=== PATIENT | male | born 1970 | race Caucasian/White ===

== ENCOUNTER → 2018-10-19 | Outpatient (CLI) | payer BC ==
--- NOTE | 2018-10-19 15:31 | P.SLEEP ---
History of Present Illness H&P Date: 10/19/18 Chief Complaint: Loud snoring, possible sleep apnea This is a pleasant 47-year-old male patient who works locally at [employer], referred to me by his primary care physician due to concern of sleep apnea. The patient has loud snoring. Over the past 10 years he has gained around 50 pounds and has become more somnolent and sleepy. His current [place] score is at 15. He can fall easily after dinner. He has been told to quit breathing by his . He wakes up tired in the morning. He goes to bed around midnight wakes up 6:30 AM. Takes a few minutes to fall asleep. No sleep paralysis. No hallucinations. No cataplexy. He wakes a few times in the middle of the night to use the bathroom. He sleeps on his side and he prefers to sleep on his side rather than his back. No nocturnal seizures. No nocturnal heartburn or chest pain or arthritis or restlessness in his lower extremities. No sleep walking. No sleep talking. No palpitations. No heartburn. No anxiety. No panic. No previous personal or family history for obstructive sleep apnea. No other major comorbidities. No history of any motor vehicle accident because of feeling drowsy or sleepy. His weight came has been noted and the patient was started on Adipex by his primary care physician for weight loss. His comorbidities include hyperlipidemia. Review of Systems Constitutional: Reports daytime sleepiness, Reports fatigue, Reports weight gain Eyes: denies as per HPI, denies blurred vision, denies bulging eye, denies decreased vision, denies diplopia, denies discharge, denies dry eye, denies irritation, denies itching, denies pain, denies photophobia, denies loss of peripheral vision, denies loss of vision, denies tunnel vision/blind spots Ears: deny: decreased hearing, ear discharge, earache, tinnitus Ears, nose, mouth and throat: Reports as per HPI (Loud snoring), Denies headache, Denies sore throat Breasts: absent: as per HPI, gynecomastia Cardiovascular: Denies chest pain, Denies shortness of breath Respiratory: Reports snoring Gastrointestinal: Reports as per HPI Genitourinary: Reports as per HPI Musculoskeletal: Reports as per HPI Musculoskeletal: absent: ankle pain, ankle stiffness, ankle swelling, as per HPI, elbow pain, elbow stiffness, elbow swelling, foot pain, foot stiffness, foot swelling, hand pain, hand stiffness, hand swelling, hip pain, hip stiffness, hip swelling, knee pain, knee stiffness, knee swelling, shoulder pain, shoulder stiffness, shoulder swelling, wrist pain, wrist stiffness, wrist swelling Integumentary: Reports as per HPI Neurological: Reports as per HPI Psychiatric: Reports as per HPI Endocrine: Reports as per HPI, Reports fatigue Hematologic/Lymphatic: Reports as per HPI Allergic/Immunologic: Reports allergic rhinitis Past Medical History Additional Past Medical History / Comment(s): Hyperlipidemia, obesity Additional Past Surgical History / Comment(s): Urologic surgery, involving the urethra opening the urine passages Smoking Status: Never smoker Past Alcohol Use History: Occasional Past Drug Use History: None Reported - Past Family History Father Family Medical History: Diabetes Mellitus, Hyperlipidemia Medications and Allergies Home Medications and Allergies Comment(s): Adipex 37.5 mg 1 tablet a day Lipitor 10 mg by mouth daily Physical Exam Vitals: The patient's blood pressure is 136/95, pulse is 100, respirations 16, temperature 98.5, saturation 7% on room air, weight is 263, height is 5 foot and 7 inches, BMI is 41.1, neck size is 18-1/2 inches The patient appeared well nourished and normally developed. Vital signs as documented. Head exam is unremarkable. No scleral icterus or corneal arcus noted. Neck is without jugular venous distension, thyromegaly, or carotid bruits. The patient has a Mallampati class IV. Carotid upstrokes are brisk bilaterally. Lungs are clear to auscultation and percussion. Cardiac exam reveals the PMI to be normally sized and situated. Rhythm is regular. First and second heart sounds normal. No murmurs, rubs or gallops. Abdominal exam reveals normal bowel sounds, no masses, no organomegaly and no aortic enlargement. Extremities are nonedematous and both femoral and pedal pulses are normal.Examination of the skin revealed no evidence of significant rashes, suspicious appearing nevi or other concerning lesions. Neurologically is awake and alert and there is no focal neurological deficits. Assessment and Plan Plan: 1 chronic hypersomnia with loud snoring and witnessed apneas, and the high likel ihood for obstructive sleep apnea. The patient's current [place] score is at 15. 2 morbid obesity with significant interval weight gain over the past 5 years. Current BMI is 41.1. The patient is using Adipex for weight loss 3 hyperlipidemia 4 chronic fatigue Plan There is a high likelihood that the patient is obstructive sleep apnea. The patient was explained that. The patient was advised to lose weight. He is already sleeping on his side. He is implementing good sleep hygiene measures. Avoid alcohol drinking related nighttime. We'll proceed with a home sleep study knowing that the patient has a high likelihood for an underlying obstructive sleep apnea disorder. Based on the results, we'll make further recommendations regarding treatment options. The patient is agreeable to the testing and we'll proceed accordingly. We'll continue to follow. Sleep Note - Sleep Note Sleep Note: Temperature: Pulse Rate: Respiratory Rate: Blood Pressure: SpO2: Height: Weight: BMI: Neck Circumference:
== END | disposition home or self-care (01) ==
LOC: SLEEP 14:44
PROVIDERS: ATTEND Internal Medicine Critical Care Medicine
DX: G47.10 Hypersomnia, unspecified (principal); E78.5 Hyperlipidemia, unspecified; R53.83 Other fatigue; Z79.891 Long term (current) use of opiate analgesic; E66.01 Morbid (severe) obesity due to excess calories; Z68.41 Body mass index [BMI] 40.0-44.9, adult
CPT/HCPCS: 99211

== ENCOUNTER → 2019-03-22 | Outpatient (CLI) | payer BC ==
--- NOTE | 2019-03-22 20:31 | PN ---
PROGRESS NOTE 48-year-old male patient coming in for a compliancy check regarding obstructive sleep apnea. The patient presents with symptoms typical of ARYA. The patient was found to have an AHI of 51. He was placed on a CPAP pressure of 14. On today's evaluation, the patient is looking good. He is very happy with his treatment. He is waking up much more refreshed and alert during the day. He has seen significant amount of improvement in his level of alertness. Snoring is completely gone. On his compliance data, the patient has been averaging around 6 hours of CPAP use per night. His CPAP is at a pressure of 14. His leak is at 14 L/minute. His AHI is down to 0.8. Since his diagnosis, the patient has gained around 12 pounds. The patient is currently up to 259. REVIEW OF SYSTEMS: Fourteen-point review of system was done. Positive findings are mentioned above in history of present illness. PHYSICAL EXAMINATION: BP is 156/90, pulse 82, respirations 16, temperature is 98.4. Weight 259, saturation 97% on room air. GENERAL APPEARANCE: Calm, comfortable. Head is atraumatic, normocephalic. NECK: Supple. There is no JVD. No goiter. No neck mass. LUNGS: Clear to auscultation. HEART: Heart sounds are regular rate and rhythm. Normal S1, S2. No murmurs. ABDOMEN: Soft, nontender. No organomegaly. EXTREMITIES: No edema. No cyanosis or clubbing. NEUROLOGIC: He is awake, alert, oriented. No focal neurological deficits. IMPRESSION: 1. Symptomatic obstructive sleep apnea. Severe AHI of 51, currently on CPAP pressure of 14 with excellent clinical response and compliance. 2. Obesity, current weight is 259. 3. Hypersomnia, improved. PLAN: 1. Continue CPAP therapy at a pressure of 14. 2. AirFit P10 nasal pillows to be continued. 3. Encourage weight loss. 4. Compliance data was checked, numbers looked good. 5. The patient will see me back in a year's time in followup. 6. No need for any adjustments for the time being. MMODL / IJN: [id number] /
== END | disposition home or self-care (01) ==
LOC: SLEEP 16:30
PROVIDERS: ATTEND Internal Medicine Critical Care Medicine
DX: G47.33 Obstructive sleep apnea (adult) (pediatric) (principal); G47.10 Hypersomnia, unspecified; E66.9 Obesity, unspecified; Z99.89 Dependence on other enabling machines and devices

== ENCOUNTER 2019-08-24 18:41 | Observation (INO) | payer BC ==
[2019-08-24] MEDS ORDERED: NITROGLYCERIN OINT 1 INCH/GM PACKET TOPICAL STA (19:07)
[2019-08-24] MEDS ORDERED: ASPIRIN 81 MG PO STA (19:07)
--- NOTE | 2019-08-24 19:13 | ED ---
General Adult HPI - General Chief complaint: Chest Pain Stated complaint: Chest pain Time Seen by Provider: 08/24/19 18:45 Source: patient, RN notes reviewed, old records reviewed Mode of arrival: wheelchair Limitations: no limitations - History of Present Illness Initial comments: This is a 48-year-old male who presents emergency Department with a past medical history significant for high cholesterol. Patient states he has been having intermittent chest pain over the last 2 weeks. 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 Patient states usually lasts about a half an hour but he has to sit down and rest and when he does it eventually subsides per patient states the pain radiates into his arm and he also comes lightheaded and on occasion nauseated and diaphoretic. Patient states it happened earlier today and so he decided come to the emergency department to be evaluated. Patient denies any chest pain currently. Patient denies any recent fever chills or cough. Patient denies any palpitations. Patient denies any abdominal pain. Patient denies any swelling to the legs or calf tenderness. - Related Data Home Medications Medication Instructions Recorded Confirmed Aspirin EC [Ecotrin Low Dose] 81 mg PO DAILY 08/24/19 08/24/19 Allergies Allergy/AdvReac Type Severity Reaction Status Date / Time No Known Allergies Allergy Verified 08/24/19 19:30 Review of Systems ROS Statement: Those systems with pertinent positive or pertinent negative responses have been documented in the HPI. ROS Other: All systems not noted in ROS Statement are negative. Past Medical History Additional Past Medical History / Comment(s): Hyperlipidemia, obesity History of Any Multi-Drug Resistant Organisms: None Reported Additional Past Surgical History / Comment(s): Urologic surgery, involving the urethra opening the urine passages Past Psychological History: No Psychological Hx Reported Smoking Status: Never smoker Past Alcohol Use History: None Reported, Occasional Past Drug Use History: None Reported - Past Family History Father Family Medical History: Diabetes Mellitus, Hyperlipidemia General Exam - General Exam Comments Initial Comments: GENERAL: Patient is well-developed and well-nourished. Patient is nontoxic and well- hydrated and is in mild distress. ENT: Neck is soft and supple. No significant lymphadenopathy is noted. Oropharynx is clear. Moist mucous membranes. Neck has full range of motion without eliciting any pain. EYES: The sclera were anicteric and conjunctiva were pink and moist. Extraocular movements were intact and pupils were equal round and reactive to light. Eyelids were unremarkable. PULMONARY: Unlabored respirations. Good breath sounds bilaterally. No audible rales rhonchi or wheezing was noted. CARDIOVASCULAR: There is a regular rate and rhythm without any murmurs gallops or rubs. ABDOMEN: Soft and nontender with normal bowel sounds. SKIN: Skin is clear with no lesions or rashes and otherwise unremarkable. NEUROLOGIC: Patient is alert and oriented x3. Cranial nerves II through XII are grossly intact. Motor and sensory are also intact. Normal speech, volume and content. Symmetrical smile. MUSCULOSKELETAL: Normal extremities with adequate strength and full range of motion. LYMPHATICS: No significant lymphadenopathy is noted PSYCHIATRIC: Normal psychiatric evaluation. Limitations: no limitations Course Vital Signs 08/24/19 08/24/19 18:43 19:15 Temperature 98.6 F Pulse Rate 99 88 Respiratory 18 20 Rate Blood Pressure 173/91 176/106 O2 Sat by Pulse 99 98 Oximetry Medical Decision Making - Medical Decision Making EKG shows normal sinus rhythm at 86 bpm VT interval 254 QRS is 92 QT interval 370 QTC is 452. Patient's EKG shows no ST segment elevation or depression. Chest x-ray shows no acute abnormality. I spoke with Dr. Mcdonald agreed to admit the patient admitted the patient wrote admitting orders. I started the patient on heparin I continue to heparin has been Nitropaste on the floor. I wrote admitting orders I consult cardiology. - Lab Data Result diagrams: 08/24/19 19:00 08/24/19 19:00 Lab Results 08/24/19 08/24/19 08/24/19 Range/Units 19:00 19:00 19:00 WBC 9.2 (3.8-10.6) k/uL RBC 4.79 (4.30-5.90) m/uL Hgb 14.4 (13.0-17.5) gm/dL Hct 41.0 (39.0-53.0) % MCV 85.5 (80.0-100.0) fL MCH 30.1 (25.0-35.0) pg MCHC 35.2 (31.0-37.0) g/dL RDW 12.8 (11.5-15.5) % Plt Count 267 (150-450) k/uL Neutrophils % 57 % Lymphocytes % 33 % Monocytes % 6 % Eosinophils % 2 % Basophils % 0 % Neutrophils # 5.3 (1.3-7.7) k/uL Lymphocytes # 3.1 (1.0-4.8) k/uL Monocytes # 0.5 (0-1.0) k/uL Eosinophils # 0.2 (0-0.7) k/uL Basophils # 0.0 (0-0.2) k/uL PT 9.6 (9.0-12.0) sec INR 0.9 (<1.2) APTT 23.3 (22.0-30.0) sec Sodium 138 (137-145) mmol/L Potassium 4.0 (3.5-5.1) mmol/L Chloride 104 (98-107) mmol/L Carbon Dioxide 25 (22-30) mmol/L Anion Gap 9 mmol/L BUN 15 (9-20) mg/dL Creatinine 0.70 (0.66-1.25) mg/dL Est GFR (CKD-EPI)AfAm >90 (>60 ml/min/1.73 sqM) Est GFR (CKD-EPI)NonAf >90 (>60 ml/min/1.73 sqM) Glucose 120 H (74-99) mg/dL Calcium 9.2 (8.4-10.2) mg/dL Magnesium 2.0 (1.6-2.3) mg/dL Total Bilirubin 0.3 (0.2-1.3) mg/dL AST 35 (17-59) U/L ALT 49 (4-49) U/L Alkaline Phosphatase 57 (38-126) U/L Troponin I (0.000-0.034) ng/mL Total Protein 7.2 (6.3-8.2) g/dL Albumin 4.4 (3.5-5.0) g/dL 08/24/19 Range/Units 19:00 WBC (3.8-10.6) k/uL RBC (4.30-5.90) m/uL Hgb (13.0-17.5) gm/dL Hct (39.0-53.0) % MCV (80.0-100.0) fL MCH (25.0-35.0) pg MCHC (31.0-37.0) g/dL RDW (11.5-15.5) % Plt Count (150-450) k/uL Neutrophils % % Lymphocytes % % Monocytes % % Eosinophils % % Basophils % % Neutrophils # (1.3-7.7) k/uL Lymphocytes # (1.0-4.8) k/uL Monocytes # (0-1.0) k/uL Eosinophils # (0-0.7) k/uL Basophils # (0-0.2) k/uL PT (9.0-12.0) sec INR (<1.2) APTT (22.0-30.0) sec Sodium (137-145) mmol/L Potassium (3.5-5.1) mmol/L Chloride (98-107) mmol/L Carbon Dioxide (22-30) mmol/L Anion Gap mmol/L BUN (9-20) mg/dL Creatinine (0.66-1.25) mg/dL Est GFR (CKD-EPI)AfAm (>60 ml/min/1.73 sqM) Est GFR (CKD-EPI)NonAf (>60 ml/min/1.73 sqM) Glucose (74-99) mg/dL Calcium (8.4-10.2) mg/dL Magnesium (1.6-2.3) mg/dL Total Bilirubin (0.2-1.3) mg/dL AST (17-59) U/L ALT (4-49) U/L Alkaline Phosphatase (38-126) U/L Troponin I <0.012 (0.000-0.034) ng/mL Total Protein (6.3-8.2) g/dL Albumin (3.5-5.0) g/dL Critical Care Time Critical Care Time: Yes Total Critical Care Time: 35 Disposition Clinical Impression: Unstable angina pectoris Disposition: ADMITTED IP TO THIS HOSP Referrals: Blake Zuñiga MD [Primary Care Provider] - 1-2 days Time of Disposition: 19:54
[2019-08-24 19:27] LABS: ALT 49 U/L (4-49); AST 35 U/L (17-59); African American GFR (CKD) >90 (>60 ml/min/1.73 sqM); Albumin 4.4 g/dL (3.5-5.0); Alkaline Phosphatase 57 U/L (38-126); Anion Gap 9 mmol/L; Blood Urea Nitrogen 15 mg/dL (9-20); Calcium 9.2 mg/dL (8.4-10.2); Carbon Dioxide 25 mmol/L (22-30); Chloride 104 mmol/L (98-107); Glucose 120 mg/dL (74-99); INR 0.9 (<1.2); Non-African American GFR(CKD) >90 (>60 ml/min/1.73 sqM); Partial Thromboplastin Time 23.3 sec (22.0-30.0); Prothrombin Time 9.6 sec (9.0-12.0); Sodium 138 mmol/L (137-145); Total Bilirubin 0.3 mg/dL (0.2-1.3); Total Protein 7.2 g/dL (6.3-8.2)
--- NOTE | 2019-08-24 19:29 | XR ---
EXAMINATION TYPE: XR chest 2V DATE OF EXAM: 08/24/2019 COMPARISON: NONE HISTORY: Chest pain TECHNIQUE: 2 views FINDINGS: Heart and mediastinum are normal. Lungs are clear. Diaphragm is normal. Bony thorax appears normal. IMPRESSION: Normal chest.
[2019-08-24 19:37] LABS: Basophils % (A) 0 %; Eosinophils # (A) 0.2 k/uL (0-0.7); Eosinophils % (A) 2 %; HGB 14.4 gm/dL (13.0-17.5); Lymphocytes # (A) 3.1 k/uL (1.0-4.8); Lymphocytes % (A) 33 %; MCH 30.1 pg (25.0-35.0); MCHC 35.2 g/dL (31.0-37.0); MCV 85.5 fL (80.0-100.0); Mean Platelet Volume 8.2; Monocytes # (A) 0.5 k/uL (0-1.0); Monocytes % (A) 6 %; Neutrophils # (A) 5.3 k/uL (1.3-7.7); Neutrophils % (A) 57 %; Platelet Count 267 k/uL (150-450); RBC 4.79 m/uL (4.30-5.90); RDW 12.8 % (11.5-15.5); WBC 9.2 k/uL (3.8-10.6)
[2019-08-24] MEDS ORDERED: NITROGLYCERIN SL TABS 0.4 MG TAB SUBLINGUAL PRN (19:55)
[2019-08-24] MEDS ORDERED: hydrALAZINE HCL 20 MG/ML 1 ML VIAL IVP STA (19:56)
[2019-08-25] MEDS: NITROGLYCERIN OINT 1 INCH/GM PACKET TOPICAL SCH ×3 (01:02→13:49)
[2019-08-25 04:16] LABS: Cholesterol 212 mg/dL (<200); HDL Cholesterol 34 mg/dL (40-60); LDL Cholesterol,Calculated 106 mg/dL (0-99); Triglycerides 361 mg/dL (<150)
[2019-08-25 08:16] VITALS: TEMP 98
--- NOTE | 2019-08-25 08:26 | P.CRDCN ---
History of Present Illness Consult date: 08/25/19 Chief complaint: Chest pain History of present illness: This is a very pleasant 48-year-old gentleman with a past medical history significant for dyslipidemia presented to the emergency department complaining of chest discomfort. The patient was in his usual state of health until about a few weeks ago when he started experiencing intermittent episodes of chest discomfort. The discomfort he describes is a dull/sharp, in the mid of the chest, without any radiations to the arms or neck or shoulders, and without any associated symptoms of shortness of breath, dizziness, heart racing, or syncope. The patient clearly stated that the chest discomfort is mostly with exertion once he is at work and moving around and better with resting. Everything comes it lasts for about 30 minutes and then it resolved once he is resting. The patient does have history of dyslipidemia but he stopped taking his medications. He does not smoke and does not drink alcohol. No significant family history of premature coronary artery disease. The EKG showed sinus rhythm without ischemic ST or T-wave abnormalities. The chest x-ray did not show any acute abnormalities. The patient was seen recently by his primary care physician where a stress test and echocardiogram recommended and scheduled for next week. I had a long discussion with the patient regarding the next step and I advised the patient to undergo coronary angiogram for definitive diagnosis giving the nature of his chest discomfort which is clearly anginal where the chest pain is worse with exertion and better with resting. The patient would like to think about it at this point. Meanwhile I am going to start the patient on metoprolol at 12.5 mg by mouth twice a day. Continue aspirin and continue heparin. We'll also obtain an echocardiogram was Doppler. Past Medical History Past Medical History: Hyperlipidemia Additional Past Medical History / Comment(s): Hyperlipidemia, obesity History of Any Multi-Drug Resistant Organisms: None Reported Additional Past Surgical History / Comment(s): Urologic surgery, involving the urethra opening the urine passages Past Anesthesia/Blood Transfusion Reactions: No Reported Reaction Past Psychological History: No Psychological Hx Reported Smoking Status: Never smoker Past Alcohol Use History: None Reported, Occasional Past Drug Use History: None Reported - Past Family History Father Family Medical History: Diabetes Mellitus, Hyperlipidemia Medications and Allergies Home Medications Medication Instructions Recorded Confirmed Type Aspirin EC [Ecotrin Low Dose] 81 mg PO DAILY 08/24/19 08/24/19 History Allergies Allergy/AdvReac Type Severity Reaction Status Date / Time No Known Allergies Allergy Verified 08/24/19 19:30 Physical Exam Vitals: Vital Signs Temp Pulse Pulse Resp BP BP Pulse Ox 08/25/19 08:00 98 F 91 149/89 96 08/25/19 04:00 97.5 F L 76 16 133/72 99 08/25/19 00:05 98.3 F 87 16 142/82 98 08/24/19 23:25 97 16 130/79 95 08/24/19 23:00 103 H 18 123/81 95 08/24/19 22:30 105 H 18 130/84 96 08/24/19 22:00 113 H 18 129/79 96 08/24/19 21:30 110 H 18 138/80 96 08/24/19 20:30 106 H 20 155/96 98 08/24/19 20:00 92 20 156/101 98 08/24/19 19:30 89 20 180/112 98 08/24/19 19:15 88 20 176/106 98 08/24/19 18:43 98.6 F 99 18 173/91 99 Intake and Output 08/24/19 08/25/19 08/25/19 22:59 06:59 14:59 Other: # Voids 1 Weight 120.202 kg - Constitutional General appearance: no acute distress - Respiratory Respiratory: bilateral: CTA - Cardiovascular Rhythm: regular Heart sounds: normal: S1, S2 Results 08/24/19 19:00 08/24/19 19:00 Cardiac Enzymes 08/24/19 08/24/19 08/24/19 Range/Units 19:00 19:00 21:56 AST 35 (17-59) U/L Troponin I <0.012 <0.012 (0.000-0.034) ng/mL 08/25/19 Range/Units 00:34 AST (17-59) U/L Troponin I <0.012 (0.000-0.034) ng/mL Coagulation 08/24/19 Range/Units 19:00 PT 9.6 (9.0-12.0) sec APTT 23.3 (22.0-30.0) sec Lipids 08/24/19 Range/Units 19:00 Triglycerides 361 H (<150) mg/dL Cholesterol 212 H (<200) mg/dL HDL Cholesterol 34 L (40-60) mg/dL CBC 08/24/19 Range/Units 19:00 WBC 9.2 (3.8-10.6) k/uL RBC 4.79 (4.30-5.90) m/uL Hgb 14.4 (13.0-17.5) gm/dL Hct 41.0 (39.0-53.0) % Plt Count 267 (150-450) k/uL Comprehensive Metabolic Panel 08/24/19 Range/Units 19:00 Sodium 138 (137-145) mmol/L Potassium 4.0 (3.5-5.1) mmol/L Chloride 104 (98-107) mmol/L Carbon Dioxide 25 (22-30) mmol/L BUN 15 (9-20) mg/dL Creatinine 0.70 (0.66-1.25) mg/dL Glucose 120 H (74-99) mg/dL Calcium 9.2 (8.4-10.2) mg/dL AST 35 (17-59) U/L ALT 49 (4-49) U/L Alkaline Phosphatase 57 (38-126) U/L Total Protein 7.2 (6.3-8.2) g/dL Albumin 4.4 (3.5-5.0) g/dL Current Medications Generic Name Dose Route Start Last Admin Trade Name Freq PRN Reason Stop Dose Admin Aspirin 325 mg 08/25/19 09:00 Aspirin PO DAILY BERT Metoprolol Tartrate 12.5 mg 08/25/19 09:00 Lopressor PO BID BERT Nitroglycerin 0.4 mg 08/24/19 19:55 Nitrostat SUBLINGUAL Q5M PRN Chest Pain Nitroglycerin 1 inch 08/25/19 00:00 08/25/19 04:25 Nitro-Bid Oint TOPICAL Not Given Q6HR BERT Intake and Output 08/24/19 08/25/19 08/25/19 22:59 06:59 14:59 Other: # Voids 1 Weight 120.202 kg 08/24/19 19:00 08/24/19 19:00 Assessment and Plan Assessment: Assessment Chest discomfort with exertion concerning for angina Dyslipidemia Mild obesity Plan Acute coronary event was ruled out I advised the patient to undergo a coronary angiogram Continue aspirin and heparin Start metoprolol Obtain an echocardiogram was Doppler Follow-up with the patient
[2019-08-25] MEDS ORDERED: METOPROLOL TARTRATE 12.5 MG TAB PO SCH (09:00)
[2019-08-25] MEDS ORDERED: ASPIRIN 325 MG TAB PO SCH (09:00)
[2019-08-25] MEDS ORDERED: ALPRAZolam 0.5 MG TAB PO PRN (09:38)
[2019-08-25] MEDS ORDERED: ALPRAZolam 0.25 MG TAB PO PRN (09:38)
[2019-08-25] MEDS ORDERED: ATORVASTATIN 80 MG TAB PO STA (09:38)
[2019-08-25] MEDS ORDERED: SODIUM CHLORIDE 0.9% 1,000 ML in EMPTY BAG 1 BAG IV ONE (09:38)
[2019-08-25] MEDS ORDERED: SODIUM CHLORIDE 0.9% 1,000 ML IV ONE (12:13)
[2019-08-25] MEDS ORDERED: LIDOCAINE 1% INJ 10MG/ML (20 ML MDV) ONE (12:14)
[2019-08-25] MEDS ORDERED: VERAPAMIL 2.5 MG/ML 2 ML AMP ONE (12:14)
[2019-08-25] MEDS ORDERED: LIDOCAINE 1% INJ 10MG/ML (20 ML MDV) SQ ONE ×2 (12:27→12:28)
[2019-08-25] MEDS ORDERED: MIDAZOLAM 2 MG/2 ML VIAL IVP ONE (12:28)
[2019-08-25] MEDS: VERAPAMIL SYRINGE (5 MG/10 ML) INTRAARTER ONE ×2 (12:28→12:35)
[2019-08-25] MEDS ORDERED: HEPARIN SODIUM 1,000 UN/ML (10ML VL) IV ONE (12:29)
[2019-08-25] MEDS ORDERED: IOPAMIDOL-370 100ML BTL INJ ONE (12:35)
[2019-08-25] MEDS ORDERED: RX INFO: IV CONTRAST WAS GIVEN 1 EACH MISC MISCELLANE PRN (12:42)
[2019-08-25] MEDS ORDERED: SODIUM CHLORIDE 0.9% 1,000 ML IV SCH (12:45)
--- NOTE | 2019-08-25 12:53 | ECHOF ---
Referral Reason:CP MEASUREMENTS -------- HEIGHT: 172.7 cm WEIGHT: 120.2 kg BP: 149/89 RVIDd: 3.5 cm (< 3.3) IVSd: 1.5 cm (0.6 - 1.1) LVIDd: 4.5 cm (3.9 - 5.3) LVPWd: 1.5 cm (0.6 - 1.1) IVSs: 1.9 cm LVIDs: 3.2 cm LVPWs: 1.9 cm LA Diam: 3.7 cm (2.7 - 3.8) Ao Diam: 3.0 cm (2.0 - 3.7) AV Cusp: 1.7 cm (1.5 - 2.6) MV EXCURSION: 10.325 mm (> 18.000) MV EF SLOPE: 30 mm/s (70 - 150) EPSS: 1.3 cm MV E Mario: 1.06 m/s MV DecT: 195 ms MV A Mario: 0.94 m/s MV E/A Ratio: 1.13 FINDINGS -------- Sinus rhythm. This was a technically adequate study. The left ventricular size is normal. There is moderate concentric left ventricular hypertrophy. O verall left ventricular systolic function is low-normal with, an EF between 50 - 55 %. The right ventricle is mildly enlarged. The left atrial size is normal. The right atrium is normal in size. Interatrial and interventricular septum intact. The aortic valve is trileaflet and appears structurally normal. The mitral valve is normal. Trace tricuspid regurgitation present. The pulmonic valve was not well visualized. The aortic root size is normal. IVC Not well visulized. There is no pericardial effusion. CONCLUSIONS -------- 1. Sinus rhythm. 2. This was a technically adequate study. 3. The left ventricular size is normal. 4. There is moderate concentric left ventricular hypertrophy. 5. Overall left ventricular systolic function is low-normal with, an EF between 50 - 55 %. 6. The right ventricle is mildly enlarged. 7. The left atrial size is normal. 8. The right atrium is normal in size. 9. Interatrial and interventricular septum intact. 10. The aortic valve is trileaflet and appears structurally normal. 11. The mitral valve is normal. 12. Trace tricuspid regurgitation present. 13. The pulmonic valve was not well visualized. 14. The aortic root size is normal. 15. IVC Not well visulized. 16. There is no pericardial effusion. FOLDER TIER: Nicole Burk RDCS
[2019-08-25 12:57] VITALS: RESP 14
[2019-08-25 16:21] VITALS: BP 124/70; PULSE 70
--- NOTE | 2019-08-25 16:26 | CC ---
CARDIAC CATHETERIZATION REPORT DATE OF SERVICE: 08/25/2019 PERFORMING PHYSICIAN: Albert Celeste M.D. PROCEDURE PERFORMED: 1. Selective right and left coronary angiogram. 2. Left heart catheterization. INDICATION: This is a 48-year-old gentleman with history of dyslipidemia as well as obesity who was admitted to the observational unit with chest discomfort concerning for angina. Because of that, a heart catheterization was advised. APPROACH: Right radial artery. COMPLICATIONS: None. LEVEL OF SEDATION: Moderate, with sedation length of 12 minutes. PROCEDURE DESCRIPTION: After obtaining informed consent, the patient was brought to the cardiac distillery laborer. The right radial artery was cannulated using micropuncture technique. The micropuncture wire passed easily. Then I placed a 6-Georgian sheath. I gave the patient 2 mg of verapamil IA and 10,000 units of heparin IV. Selective right and left coronary angiogram was performed using JR4 and JL3.5 catheters. Left heart catheterization was performed using the JR4 catheter, which crossed the aortic valve. Then I did pullback across the valve after the catheter was flushed. The procedure was completed without any complication. SELECTIVE CORONARY ANGIOGRAM: 1. The right coronary artery is a large-caliber vessel. It is a dominant vessel and appeared to be angiographically normal. It distally bifurcates into PDA and PLV branches. Both appeared to be angiographically normal. 2. The left main is angiographically normal. It bifurcates into LCX, ramus intermedius and left anterior descending artery. 3. The LCX is a large-caliber vessel. It is a nondominant vessel. The LCX is angiographically normal. It gives rise to OM1 and OM2 and OM3 and all appeared to be angiographically normal. The circumflex continues after that as a small-caliber vessel in the AV groove. 4. The ramus intermedius is a small- to medium-caliber vessel, appeared to be angiographically normal. 5. The LAD. The proximal LAD is normal. It gives rise to first diagonal branch which seems to be normal. The mid and distal LAD appeared to be normal. 6. HEMODYNAMICS: The LVEDP was 12 mmHg without significant gradient across the aortic valve. CONCLUSION: 1. Normal coronary angiogram. 2. Mildly elevated LVEDP. POST-PROCEDURE MANAGEMENT: 1. Medical treatment. 2. Follow up with the patient. MMODL / IJN: [id number] /
--- NOTE | 2019-08-25 19:57 | P.HPIM ---
History of Present Illness H&P Date: 08/25/19 Chief Complaint: Pain all over History of presenting complaint: This is a pleasant [address] Blake carlson. Patient to 3 weeks has been noting saying that he's been having some chest pain while. In fact aching all over on the shoulders and back cough lower extremity just weak tired rundown. No fever no chills. No cough or urinary symptoms. Patient has been eating rather junk food. He states over the last few weeks is "35 pounds. The chest pain is actually across the chest not related to activity. No radiation. No dizziness or lightheadedness. No shortness of breath or wheezing. Review of systems: GEN.: Tired EYES: None HEENT: None NECK: None RESPIRATORY: None CARDIOVASCULAR: As above GASTROINTESTINAL: None GENITOURINARY: None MUSCULOSKELETAL: As above LYMPHATICS: None HEMATOLOGICAL: None PSYCHIATRY: None NEUROLOGICAL: None. Past medical history to include: Hyperlipidemia, obesity Social history: Does not smoke. Alcohol occasionally. . Works at [employer] Physical examination: VITAL SIGNS: 98.6, 99, 18, 173 was 91, 99% on room air GENERAL: BMI 40.3, laying in bed awake. EYES: Pupils equal. Conjunctiva normal. HEENT: External appearance of nose and ears normal, oral cavity grossly normal. NECK: JVD not raised; masses not palpable. HEART: First and second heart sounds are normal; no edema. LUNGS: Respiratory rate normal; clear to auscultation. ABDOMEN: Soft, nontender, liver spleen not palpable, no masses palpable. PSYCH: Alert and oriented x3; mood and affect normal. NEUROLOGICAL: Cranial nerves grossly intact; no facial asymmetry, power and sensation grossly intact. LYMPHATICS: No lymph nodes palpable in the axilla and neck INVESTIGATIONS, reviewed in the clinical context: White count 9.2 hemoglobin 14.4 platelets 267 potassium 4.0 crit 0.7 Troponin I 3 negative LDL 106 COVID 19 PCR-not detected EKG tracing personally reviewed by me-normal sinus rhythm, poor R-wave progression Chest x-ray film personally reviewed by me-no infiltrates 2-D echocardiogram-moderate concentric LVH, EF 50-55% Assessment: -This is a pleasant patient who presents with 3 weeks of generalized weakness type pain all over but no specific cardiac symptoms. Cardiac risk factors include obesity and hyperlipidemia. Patient has R-wave progression on the EKG. -Morbid obesity BMI 40.3 -Deconditioning due to acute putting on weight of 35 pounds last few weeks -Hyperlipidemia Plan: Cardiology was consulted to was decided to treat the patient for cardiac catheterization. Home medications resumed. Past Medical History Past Medical History: Hyperlipidemia Additional Past Medical History / Comment(s): Hyperlipidemia, obesity History of Any Multi-Drug Resistant Organisms: None Reported Additional Past Surgical History / Comment(s): Urologic surgery, involving the urethra opening the urine passages Past Anesthesia/Blood Transfusion Reactions: No Reported Reaction Past Psychological History: No Psychological Hx Reported Smoking Status: Never smoker Past Alcohol Use History: None Reported, Occasional Past Drug Use History: None Reported - Past Family History Father Family Medical History: Diabetes Mellitus, Hyperlipidemia Medications and Allergies Home Medications Medication Instructions Recorded Confirmed Type Aspirin EC [Ecotrin Low Dose] 81 mg PO DAILY 08/24/19 08/24/19 History Lisinopril-Hctz 10-12.5 mg 1 tab PO DAILY #30 tab 08/25/19 Rx [Zestoretic 10-12.5] Allergies Allergy/AdvReac Type Severity Reaction Status Date / Time No Known Allergies Allergy Verified 08/24/19 19:30 Physical Exam Vitals: Vital Signs Temp Pulse Pulse Resp BP BP Pulse Ox 08/25/19 08:00 98 F 91 149/89 96 08/25/19 04:00 97.5 F L 76 16 133/72 99 08/25/19 00:05 98.3 F 87 16 142/82 98 08/24/19 23:25 97 16 130/79 95 08/24/19 23:00 103 H 18 123/81 95 08/24/19 22:30 105 H 18 130/84 96 08/24/19 22:00 113 H 18 129/79 96 08/24/19 21:30 110 H 18 138/80 96 08/24/19 20:30 106 H 20 155/96 98 08/24/19 20:00 92 20 156/101 98 08/24/19 19:30 89 20 180/112 98 08/24/19 19:15 88 20 176/106 98 08/24/19 18:43 98.6 F 99 18 173/91 99 Intake and Output 08/24/19 08/25/19 08/25/19 22:59 06:59 14:59 Other: # Voids 1 Weight 120.202 kg Results CBC & Chem 7: 08/24/19 19:00 08/24/19 19:00 Labs: Abnormal Lab Results - Last 24 Hours (Table) 08/24/19 08/24/19 Range/Units 19:00 19:00 Glucose 120 H (74-99) mg/dL Triglycerides 361 H (<150) mg/dL Cholesterol 212 H (<200) mg/dL LDL Cholesterol, Calc 106 H (0-99) mg/dL HDL Cholesterol 34 L (40-60) mg/dL Thrombosis Risk Factor Assmnt - Choose All That Apply Any of the Below Risk Factors Present?: Yes Each Factor Represents 1 point: Obesity (BMI >25) Other Risk Factors: No Other congenital or acquired thrombophilia - If yes, enter type in comment: No Thrombosis Risk Factor Assessment Total Risk Factor Score: 1 Thrombosis Risk Factor Assessment Level: Low Risk
--- NOTE | 2019-08-25 20:00 | P.DS ---
Providers Date of admission: 08/24/19 19:55 Expected date of discharge: 08/25/19 Attending physician: Arnold Mcdonald Consults: 08/24/19 19:55 Consult Physician Urgent Consulting Provider: [facility] Reason/Comments: Unstable angina Do you want consulting provider notified?: Yes Primary care physician: Blake Carlson [facility] Course: Chief Complaint: Pain all over History of presenting complaint: This is a pleasant [address] Blake carlson. Patient to 3 weeks has been noting saying that he's been having some chest pain while. In fact aching all over on the shoulders and back cough lower extremity just weak tired rundown. No fever no chills. No cough or urinary symptoms. Patient has been eating rather junk food. He states over the last few weeks is "35 pounds. The chest pain is actually across the chest not related to activity. No radiation. No dizziness or lightheadedness. No shortness of breath or wheezing. Patient was seen by cardiology-underwent a cardiac catheterization.-Normal coronaries. Patient's presentation was felt to be from deconditioning from putting about 35 pounds in the last few weeks. Extensive counseling was done with the patient and . Started on antihypertensive. Patient be seen by dietitian before discharge. Consultation: Dr. Celeste from cardiology Physical examination: VITAL SIGNS: 97.5, 76, 16, 133/72, 99% room air GENERAL: BMI 40.3, laying in bed awake. EYES: Pupils equal. Conjunctiva normal. HEENT: External appearance of nose and ears normal, oral cavity grossly normal. NECK: JVD not raised; masses not palpable. HEART: First and second heart sounds are normal; no edema. LUNGS: Respiratory rate normal; clear to auscultation. ABDOMEN: Soft, nontender, liver spleen not palpable, no masses palpable. PSYCH: Alert and oriented x3; mood and affect normal. INVESTIGATIONS, reviewed in the clinical context: White count 9.2 hemoglobin 14.4 platelets 267 potassium 4.0 crit 0.7 Troponin I 3 negative LDL 106 COVID 19 PCR-not detected EKG tracing personally reviewed by me-normal sinus rhythm, poor R-wave progression Chest x-ray film personally reviewed by me-no infiltrates 2-D echocardiogram-moderate concentric LVH, EF 50-55% Cardiac catheterization-reveals normal coronaries Assessment: -Deconditioning from being morbidly obese -Morbid obesity BMI 40.3 -Chest pain possibly musculoskeletal -Hyperlipidemia -Essential hypertension -Hypertensive heart disease Disposition: Home Patient Condition at Discharge: Undetermined Plan - Discharge Summary New Discharge Prescriptions: New Lisinopril-Hctz 10-12.5 mg [Zestoretic 10-12.5] 1 tab PO DAILY #30 tab Continue Aspirin EC [Ecotrin Low Dose] 81 mg PO DAILY Discharge Medication List Aspirin EC [Ecotrin Low Dose] 81 mg PO DAILY 08/24/19 [History] Lisinopril-Hctz 10-12.5 mg [Zestoretic 10-12.5] 1 tab PO DAILY #30 tab 08/25/19 [Rx] Follow up Appointment(s)/Referral(s): Albert Celeste MD [STAFF PHYSICIAN] - 1 Week (Office will call you with a follow up appointment date and time with Dr. Celeste) Blake Carlson MD [Primary Care Provider] - 1-2 days Patient Instructions/Handouts: *Surgery [facility] - After Heart Catheterization - Security System Installer Instructions Activity/Diet/Wound Care/Special Instructions: See Activity Restriction Instructions Discharge Disposition: HOME SELF-CARE
== END 2019-08-25 18:22 | disposition home or self-care (01) ==
LOC: EC 18:41 → 1SOBS 19:55
PROVIDERS: ADMIT Hospitalist; ATTEND Hospitalist
DX: R07.89 Other chest pain (principal); I11.9 Hypertensive heart disease without heart failure; E78.5 Hyperlipidemia, unspecified; E78.00 Pure hypercholesterolemia, unspecified; E66.01 Morbid (severe) obesity due to excess calories; Z68.41 Body mass index [BMI] 40.0-44.9, adult; R53.1 Weakness; R53.81 Other malaise; Z20.828 Contact with and (suspected) exposure to other viral communicable diseases; Z79.82 Long term (current) use of aspirin; Z83.49 Family history of other endocrine, nutritional and metabolic diseases; Z83.3 Family history of diabetes mellitus
CPT/HCPCS: 96374; 99291; 36415; 93005 ×2; 93306; 93458; 80061; 80053; 83735; 84484 ×2; 85025; 85610; 85730; 71046; G0378 ×2; C1769; C1894; U0003; J2250; J0360; J2001; J1644; Q9967

== ENCOUNTER 2020-12-13 16:43 | Observation (INO) | payer BC ==
[2020-12-13] MEDS ORDERED: HYDROmorphone 0.5 MG/0.5 ML SYRINGE IVP STA (18:27)
[2020-12-13] MEDS ORDERED: SODIUM CHLORIDE 0.9% 1,000 ML IV STA (18:27)
--- NOTE | 2020-12-13 18:56 | ED ---
General Adult HPI - General Chief complaint: Abdominal Pain Stated complaint: Sent by Dr Cortez/Abdominal Infection Time Seen by Provider: 12/13/20 17:20 Source: patient, RN notes reviewed, old records reviewed Mode of arrival: ambulatory Limitations: no limitations - History of Present Illness Initial comments: This is a 50-year-old male comes in complaining of umbilical abdominal pain. Patient states when he saw Dr. Cortez he center for a CAT scan and an ultrasound. Patient's CAT scan showed a fat-containing umbilical hernia with some inflammatory changes around it differential includes strangulated omentum and/or possible infection. Patient denies any fever chills. Patient states the pain did start yesterday. Patient denies any nausea vomiting per patient denies any diarrhea. She denies chest pain difficult breathing shortness of breath. - Related Data Home Medications Medication Instructions Recorded Confirmed Atorvastatin [Lipitor] 10 mg PO HS 12/13/20 12/13/20 Chlorthalidone 25 mg PO DAILY 12/13/20 12/13/20 Cholecalciferol [Vitamin D3 (25 25 mcg PO HS 12/13/20 12/13/20 Mcg = 1000 Iu)] Metoprolol Tartrate [Lopressor] 25 mg PO BID 12/13/20 12/13/20 Ubidecarenone [Co Q-10] 100 mg PO HS 12/13/20 12/13/20 Allergies Allergy/AdvReac Type Severity Reaction Status Date / Time No Known Allergies Allergy Verified 12/13/20 18:45 Review of Systems ROS Statement: Those systems with pertinent positive or pertinent negative responses have been documented in the HPI. ROS Other: All systems not noted in ROS Statement are negative. Past Medical History Past Medical History: Hyperlipidemia Additional Past Medical History / Comment(s): Hyperlipidemia, obesity History of Any Multi-Drug Resistant Organisms: None Reported Additional Past Surgical History / Comment(s): Urologic surgery, involving the urethra opening the urine passages Past Anesthesia/Blood Transfusion Reactions: No Reported Reaction Past Psychological History: No Psychological Hx Reported Smoking Status: Never smoker Past Alcohol Use History: None Reported Past Drug Use History: None Reported - Past Family History Father Family Medical History: Diabetes Mellitus, Hyperlipidemia General Exam - General Exam Comments Initial Comments: GENERAL: Patient is well-developed and well-nourished. Patient is nontoxic and well- hydrated and is in mild distress. ENT: Neck is soft and supple. No significant lymphadenopathy is noted. Oropharynx is clear. Moist mucous membranes. Neck has full range of motion without eliciting any pain. EYES: The sclera were anicteric and conjunctiva were pink and moist. Extraocular movements were intact and pupils were equal round and reactive to light. Eyelids were unremarkable. PULMONARY: Unlabored respirations. Good breath sounds bilaterally. No audible rales rhonchi or wheezing was noted. CARDIOVASCULAR: There is a regular rate and rhythm without any murmurs gallops or rubs. ABDOMEN: Pain around the umbilical region. No obvious hernias noted but difficult to palpate significantly because patient is having such exquisite pain in that area. SKIN: Skin is clear with no lesions or rashes and otherwise unremarkable. NEUROLOGIC: Patient is alert and oriented x3. Cranial nerves II through XII are grossly intact. Motor and sensory are also intact. Normal speech, volume and content. Symmetrical smile. MUSCULOSKELETAL: Normal extremities with adequate strength and full range of motion. LYMPHATICS: No significant lymphadenopathy is noted PSYCHIATRIC: Normal psychiatric evaluation. Limitations: no limitations Course Vital Signs 12/13/20 17:18 Temperature 98.1 F Pulse Rate 83 Respiratory 18 Rate Blood Pressure 141/89 O2 Sat by Pulse 96 Oximetry Medical Decision Making - Medical Decision Making I reviewed the CAT scan I spoke with Dr. nguyen he agreed to admit the patient. I admitted the patient - Lab Data Result diagrams: 12/13/20 18:55 12/13/20 18:55 Lab Results 12/13/20 12/13/20 12/13/20 Range/Units 18:55 18:55 18:55 WBC 8.8 (3.8-10.6) k/uL RBC 5.04 (4.30-5.90) m/uL Hgb 15.0 (13.0-17.5) gm/dL Hct 43.3 (39.0-53.0) % MCV 86.0 (80.0-100.0) fL MCH 29.7 (25.0-35.0) pg MCHC 34.6 (31.0-37.0) g/dL RDW 12.2 (11.5-15.5) % Plt Count 239 (150-450) k/uL MPV 8.3 Neutrophils % 60 % Lymphocytes % 31 % Monocytes % 6 % Eosinophils % 1 % Basophils % 0 % Neutrophils # 5.3 (1.3-7.7) k/uL Lymphocytes # 2.7 (1.0-4.8) k/uL Monocytes # 0.5 (0-1.0) k/uL Eosinophils # 0.1 (0-0.7) k/uL Basophils # 0.0 (0-0.2) k/uL Sodium 134 L (137-145) mmol/L Potassium 3.5 (3.5-5.1) mmol/L Chloride 98 (98-107) mmol/L Carbon Dioxide 25 (22-30) mmol/L Anion Gap 11 mmol/L BUN 16 (9-20) mg/dL Creatinine 0.69 (0.66-1.25) mg/dL Est GFR (CKD-EPI)AfAm >90 (>60 ml/min/1.73 sqM) Est GFR (CKD-EPI)NonAf >90 (>60 ml/min/1.73 sqM) Glucose 110 H (74-99) mg/dL Plasma Lactic Acid Kareem 0.9 (0.7-2.0) mmol/L Calcium 9.4 (8.4-10.2) mg/dL Total Bilirubin 0.6 (0.2-1.3) mg/dL AST 58 (17-59) U/L ALT 78 H (4-49) U/L Alkaline Phosphatase 63 (38-126) U/L Total Protein 7.5 (6.3-8.2) g/dL Albumin 4.5 (3.5-5.0) g/dL Amylase 54 (30-110) U/L Lipase 73 (23-300) U/L Disposition Clinical Impression: Strangulated umbilical hernia Disposition: [facility] Referrals: Abebe Cortez MD [Primary Care Provider] - 1-2 days Time of Disposition: 20:06
[2020-12-13 19:12] LABS: ALT 78 U/L (4-49); AST 58 U/L (17-59); African American GFR (CKD) >90 (>60 ml/min/1.73 sqM); Albumin 4.5 g/dL (3.5-5.0); Alkaline Phosphatase 63 U/L (38-126); Amylase 54 U/L (30-110); Anion Gap 11 mmol/L; Blood Urea Nitrogen 16 mg/dL (9-20); Calcium 9.4 mg/dL (8.4-10.2); Carbon Dioxide 25 mmol/L (22-30); Chloride 98 mmol/L (98-107); Glucose 110 mg/dL (74-99); Lipase 73 U/L (23-300); Non-African American GFR(CKD) >90 (>60 ml/min/1.73 sqM); Potassium 3.5 mmol/L (3.5-5.1); Sodium 134 mmol/L (137-145); Total Bilirubin 0.6 mg/dL (0.2-1.3); Total Protein 7.5 g/dL (6.3-8.2)
[2020-12-13 19:23] LABS: Basophils % (A) 0 %; Eosinophils # (A) 0.1 k/uL (0-0.7); Eosinophils % (A) 1 %; HCT 43.3 % (39.0-53.0); Lymphocytes # (A) 2.7 k/uL (1.0-4.8); Lymphocytes % (A) 31 %; MCH 29.7 pg (25.0-35.0); MCHC 34.6 g/dL (31.0-37.0); Mean Platelet Volume 8.3; Monocytes # (A) 0.5 k/uL (0-1.0); Monocytes % (A) 6 %; Neutrophils # (A) 5.3 k/uL (1.3-7.7); Neutrophils % (A) 60 %; Platelet Count 239 k/uL (150-450); RBC 5.04 m/uL (4.30-5.90); RDW 12.2 % (11.5-15.5); WBC 8.8 k/uL (3.8-10.6)
[2020-12-13] MEDS ORDERED: PIPERACILLIN-TAZOBACTAM 3.375 GM in SODIUM CHLORIDE 0.9% 100 ML IVPB STA (20:06)
[2020-12-13] MEDS ORDERED: SODIUM CHLORIDE 0.9% 1,000 ML IV ONE (20:11)
[2020-12-13] MEDS ORDERED: HYDROmorphone 0.5 MG/0.5 ML SYRINGE IVP PRN (20:12)
[2020-12-13] MEDS ORDERED: ONDANSETRON 4 MG/2 ML VIAL IVP PRN (20:17)
[2020-12-14] MEDS: PIPERACILLIN-TAZOBACTAM 3.375 GM in SODIUM CHLORIDE 0.9% 100 ML IVPB SCH ×2 (03:39→11:34)
--- NOTE | 2020-12-14 11:46 | P.GSHP ---
<Nan Kinney - Last Filed: 12/14/20 11:18> History of Present Illness H&P Date: 12/14/20 Chief Complaint: Abdominal pain CHIEF COMPLAINT: Abdominal pain HISTORY OF PRESENT ILLNESS: This is a 50-year-old male who presented to the emergency department per request from his primary care physician. Patient yesterday went to see his PCP for routine physical and had some abdominal discomfort on palpation with concerns for possible hernia. Patient was sent for an outpatient abdominal ultrasound stating differential considerations include omental fat-containing inferior. Umbilical hernia measuring 2.2 cm versus complex fluid relating to infection. The former is somewhat favored. Given some interspersed fluid, associated inflammation from the fatty hernia incarcer ation or strangulation is not excluded at this time. He then underwent a CT of the abdomen that showed small but inflamed fatty umbilical hernia measuring 2.8 cm. Inflammation could be secondary to associated infection/cellulitis versus incarceration and strangulation. No abscess. Consider surgical evaluation. Mild hepatomegaly with mild hepatic steatosis. The patient's PCP had him go to the emergency department for further evaluation. Patient denies any acute abdominal pain just tenderness with palpation. He states that Thursday at work he had bumped his abdomen soft slightly on a chair and had noticed that there was some tenderness. He denies any associated nausea or vomiting. Bowel movements have been normal and regular. Last bowel movement was yesterday. He denies any fevers or chills. 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 He's been afebrile. On admission WBC 8.8 hemoglobin 15 platelet count 239,000 sodium 134 potassium 3.5P 116 creatinine 0.69 glucose 110 total bili nunez 0.6 AST 58 ALT 78 alk phos 63 amylase 54 lipase 73 PAST MEDICAL HISTORY: Hyperlipidemia, obesity PAST SURGICAL HISTORY: Urologic surgery MEDICATIONS: See list. ALLERGIES: No known ALLERGIES SOCIAL HISTORY: No illicit drug use. Nonsmoker. REVIEW OF SYSTEMS: CONSTITUTIONAL: Denies fever or chills. HEENT: Denies blurred vision, vision changes, or eye pain. Denies hemoptysis CARDIOVASCULAR: Denies chest pain or pressure. RESPIRATORY: No shortness of breath. GASTROINTESTINAL: Abdominal tenderness mostly by umbilicus. States there is some firmness surrounding the umbilicus. No nausea or vomiting. Bowel movements have been normal. HEMATOLOGIC: Denies bleeding disorders. GENITOURINARY: Denies any blood in urine or increased urinary frequency. SKIN: Denies pruitis. Denies rash. PHYSICAL EXAM: VITAL SIGNS: Reviewed GENERAL: Well-developed in no acute distress. HEENT: No sclera icterus. Extraocular movements grossly intact. Moist buccal mucosa. Head is atraumatic, normocephalic. No nasal drainage. ABDOMEN: Soft. Obese. Nondistended. Tenderness with palpation surrounding umbilicus. NEUROLOGIC: Alert and oriented. Cranial nerves II through XII grossly intact. LABORATORY DATA: WBC 8.8 hemoglobin 15 hematocrit 43 platelet count 239,000 Sodium 134 potassium 3.5 nightly 16 creatinine 0.69 glucose 110 Total bilirubin 0.6 AST 58 ALT 78 [place] phosphatase 63 amylase 54 lipase 73 IMAGING: Abdominal ultrasound: Differential considerations include omental fat-containing inferior periumbilical hernia measuring 2.2 cm versus complex fluid relating to infection. The former is somewhat favored. Given some interspersed fluid, associated inflammation from a fatty hernia incarceration or strangulation is not excluded at this time. CT abdomen and pelvis: Small but inflamed fatty umbilical hernia measuring 2.8 cm. Inflammation could be secondary to associated infection/cellulitis versus incarceration and strangulation. No abscess. Consider surgical evaluation. Mild hepatomegaly with mild hepatic steatosis ASSESSMENT: 1. Umbilical hernia, incarcerated 2. Abdominal pain 3. Obesity PLAN: 1. Nothing by mouth 2. Continue Zosyn 3. Patient is scheduled for repair of incarcerated umbilical hernia with possible mesh 4. Further recommendations forthcoming per surgeon The impression and plan of care has been dictated as directed. Dr. Gibson I performed a history and examination of this patient, discussed the same with the dictator. I agree with the dictator's note ,documented as a scribe. Any additional findings or plans will be noted. Past Medical History Past Medical History: Hyperlipidemia, Hypertension, Myocardial Infarction (NM), Sleep Apnea/CPAP/BIPAP Additional Past Medical History / Comment(s): Hyperlipidemia, obesity, NM 2019, Sleep apnea wears CPAP at night Last Myocardial Infarction Date:: 2019 History of Any Multi-Drug Resistant Organisms: None Reported Additional Past Surgical History / Comment(s): Urologic surgery, involving the urethra opening the urine passages Past Anesthesia/Blood Transfusion Reactions: No Reported Reaction Past Psychological History: No Psychological Hx Reported Smoking Status: Never smoker Past Alcohol Use History: None Reported Past Drug Use History: None Reported - Past Family History Father Family Medical History: Diabetes Mellitus, Hyperlipidemia Medications and Allergies Home Medications Medication Instructions Recorded Confirmed Type Atorvastatin [Lipitor] 10 mg PO HS 12/13/20 12/13/20 History Chlorthalidone 25 mg PO DAILY 12/13/20 12/13/20 History Cholecalciferol [Vitamin D3 (25 25 mcg PO HS 12/13/20 12/13/20 History Mcg = 1000 Iu)] Metoprolol Tartrate [Lopressor] 25 mg PO BID 12/13/20 12/13/20 History Ubidecarenone [Co Q-10] 100 mg PO HS 12/13/20 12/13/20 History Allergies Allergy/AdvReac Type Severity Reaction Status Date / Time No Known Allergies Allergy Verified 12/13/20 18:45 Surgical - Exam Vital Signs Temp Pulse Resp BP Pulse Ox 98.1 F 83 18 141/89 96 12/13/20 17:18 12/13/20 17:18 12/13/20 17:18 12/13/20 17:18 12/13/20 17:18 Results - Labs 12/13/20 18:55 12/13/20 18:55 Abnormal Lab Results - Last 24 Hours (Table) 12/13/20 Range/Units 18:55 Sodium 134 L (137-145) mmol/L Glucose 110 H (74-99) mg/dL ALT 78 H (4-49) U/L Diabetes panel 12/13/20 Range/Units 18:55 Sodium 134 L (137-145) mmol/L Potassium 3.5 (3.5-5.1) mmol/L Chloride 98 (98-107) mmol/L Carbon Dioxide 25 (22-30) mmol/L BUN 16 (9-20) mg/dL Creatinine 0.69 (0.66-1.25) mg/dL Glucose 110 H (74-99) mg/dL Calcium 9.4 (8.4-10.2) mg/dL AST 58 (17-59) U/L ALT 78 H (4-49) U/L Alkaline Phosphatase 63 (38-126) U/L Total Protein 7.5 (6.3-8.2) g/dL Albumin 4.5 (3.5-5.0) g/dL Calcium panel 12/13/20 Range/Units 18:55 Calcium 9.4 (8.4-10.2) mg/dL Albumin 4.5 (3.5-5.0) g/dL Pituitary panel 12/13/20 Range/Units 18:55 Sodium 134 L (137-145) mmol/L Potassium 3.5 (3.5-5.1) mmol/L Chloride 98 (98-107) mmol/L Carbon Dioxide 25 (22-30) mmol/L BUN 16 (9-20) mg/dL Creatinine 0.69 (0.66-1.25) mg/dL Glucose 110 H (74-99) mg/dL Calcium 9.4 (8.4-10.2) mg/dL Adrenal panel 12/13/20 Range/Units 18:55 Sodium 134 L (137-145) mmol/L Potassium 3.5 (3.5-5.1) mmol/L Chloride 98 (98-107) mmol/L Carbon Dioxide 25 (22-30) mmol/L BUN 16 (9-20) mg/dL Creatinine 0.69 (0.66-1.25) mg/dL Glucose 110 H (74-99) mg/dL Calcium 9.4 (8.4-10.2) mg/dL Total Bilirubin 0.6 (0.2-1.3) mg/dL AST 58 (17-59) U/L ALT 78 H (4-49) U/L Alkaline Phosphatase 63 (38-126) U/L Total Protein 7.5 (6.3-8.2) g/dL Albumin 4.5 (3.5-5.0) g/dL <Mark Gibson - Last Filed: 12/14/20 12:01> History of Present Illness As above. Patient has a small but impressively symptomatic strangulated umbilical hernia containing inflamed fat. Options reviewed with the patient and his family. We'll proceed with open repair strangulated umbilical hernia with p ossible mesh. Risks of bleeding, infection, recurrence, bladder and bowel injury, numbness, nerve injury were discussed with the patient. The patient understands and wishes to proceed. Surgical - Exam Vital Signs Temp Pulse Resp BP Pulse Ox 98.1 F 83 18 141/89 96 12/13/20 17:18 12/13/20 17:18 12/13/20 17:18 12/13/20 17:18 12/13/20 17:18 Results - Labs 12/13/20 18:55 12/13/20 18:55 Abnormal Lab Results - Last 24 Hours (Table) 12/13/20 Range/Units 18:55 Sodium 134 L (137-145) mmol/L Glucose 110 H (74-99) mg/dL ALT 78 H (4-49) U/L Diabetes panel 12/13/20 Range/Units 18:55 Sodium 134 L (137-145) mmol/L Potassium 3.5 (3.5-5.1) mmol/L Chloride 98 (98-107) mmol/L Carbon Dioxide 25 (22-30) mmol/L BUN 16 (9-20) mg/dL Creatinine 0.69 (0.66-1.25) mg/dL Glucose 110 H (74-99) mg/dL Calcium 9.4 (8.4-10.2) mg/dL AST 58 (17-59) U/L ALT 78 H (4-49) U/L Alkaline Phosphatase 63 (38-126) U/L Total Protein 7.5 (6.3-8.2) g/dL Albumin 4.5 (3.5-5.0) g/dL Calcium panel 12/13/20 Range/Units 18:55 Calcium 9.4 (8.4-10.2) mg/dL Albumin 4.5 (3.5-5.0) g/dL Pituitary panel 12/13/20 Range/Units 18:55 Sodium 134 L (137-145) mmol/L Potassium 3.5 (3.5-5.1) mmol/L Chloride 98 (98-107) mmol/L Carbon Dioxide 25 (22-30) mmol/L BUN 16 (9-20) mg/dL Creatinine 0.69 (0.66-1.25) mg/dL Glucose 110 H (74-99) mg/dL Calcium 9.4 (8.4-10.2) mg/dL Adrenal panel 12/13/20 Range/Units 18:55 Sodium 134 L (137-145) mmol/L Potassium 3.5 (3.5-5.1) mmol/L Chloride 98 (98-107) mmol/L Carbon Dioxide 25 (22-30) mmol/L BUN 16 (9-20) mg/dL Creatinine 0.69 (0.66-1.25) mg/dL Glucose 110 H (74-99) mg/dL Calcium 9.4 (8.4-10.2) mg/dL Total Bilirubin 0.6 (0.2-1.3) mg/dL AST 58 (17-59) U/L ALT 78 H (4-49) U/L Alkaline Phosphatase 63 (38-126) U/L Total Protein 7.5 (6.3-8.2) g/dL Albumin 4.5 (3.5-5.0) g/dL
[2020-12-14] MEDS ORDERED: IV FLUID CONTINUATION 1,000 ML IV ONE ×2 (11:58)
[2020-12-14] MEDS ORDERED: HEPARIN SODIUM,PORCINE/PF 5,000 UNIT/0.5 ML SYRINGE SQ ONE (12:06)
[2020-12-14] MEDS ORDERED: fentaNYL (PF) 50 MCG/ML 2 ML AMP ONE (12:15)
[2020-12-14] MEDS ORDERED: KETAMINE 10 MG/ML 20 ML VIAL ONE (12:15)
[2020-12-14] MEDS ORDERED: LIDOCAINE 1% INJ 10MG/ML (20 ML MDV) ONE (12:15)
[2020-12-14] MEDS ORDERED: KETOROLAC 15 MG/ML 1 ML VIAL ONE (12:15)
[2020-12-14] MEDS ORDERED: PROPOFOL 10 MG/ML 20 ML VIAL IV ONE (12:15)
[2020-12-14] MEDS ORDERED: MIDAZOLAM 2 MG/2 ML VIAL ONE (12:15)
[2020-12-14] MEDS ORDERED: NEOSTIGMINE 1 MG/ML 10 ML VIAL ONE (12:15)
[2020-12-14] MEDS ORDERED: METOPROLOL TARTRATE 5 MG/5 ML VIAL IVP ONE (12:15)
[2020-12-14] MEDS ORDERED: ROCURONIUM 10 MG/ML (5 ML VIAL) IV ONE (12:15)
[2020-12-14] MEDS ORDERED: GLYCOPYRROLATE 0.2 MG/ML 2 ML VIAL ONE (12:15)
[2020-12-14] MEDS ORDERED: SUCCINYLCHOLINE CHLORIDE VIAL 200 MG/10 ML VIAL IV ONE (12:15)
[2020-12-14] MEDS ORDERED: ONDANSETRON 4 MG/2 ML VIAL IVP ONE (12:17)
[2020-12-14] MEDS ORDERED: DEXAMETHASONE SOD PHOSPHATE 4 MG/ML 1 ML VIAL IV ONE (12:17)
[2020-12-14] MEDS ORDERED: HEPARIN SODIUM,PORCINE 5,000 UNIT/ML 1 ML VIAL SQ ONE (12:19)
[2020-12-14] MEDS ORDERED: BUPIVACAINE (PF) 0.25% 30 ML VIAL SQ ONE (13:20)
[2020-12-14 13:52] VITALS: RESP 16
[2020-12-14] MEDS ORDERED: ACETAMINOPHEN TAB 325 MG TAB PO PRN (13:53)
[2020-12-14] MEDS ORDERED: HYDROcodone/APAP 5-325MG 1 EACH TAB PO PRN (13:53)
[2020-12-14] MEDS ORDERED: NALOXONE 0.4 MG/ML 1 ML VIAL IV PRN (13:53)
--- NOTE | 2020-12-14 14:00 | P.OP ---
Date of Procedure: 12/14/20 Procedure(s) Performed: PREOPERATIVE DIAGNOSIS: Strangulated umbilical hernia containing fat POSTOPERATIVE DIAGNOSIS: Strangulated umbilical hernia, incisional hernia PROCEDURE: Repair strangulated umbilical hernia with repair incisional hernia with mesh SURGEON: Dr. Gibson ANESTHESIA: General OPERATIVE PROCEDURE DETAILS: The patient was placed in the operating table in the supine position. A left sided periumbilical incision was made using the scalpel. The subcutaneous tissues were dissected bluntly and with cautery. The hernia sac was identified. The umbilical attachments to the fascia were divided using electrocautery. There was a very indurated piece of fat noted at the site of hernia. The hernia sac was opened at that time. There is a small portion of omental fat that was excised. The remainder of the preperitoneal fat was removed. The hernia sac was excised. The defect in the fascia measured 1.5 x 1.5 cm The fat overlying the fascia was dissected circumferentially. The patient had an additional defect superior to that that was only about 8 mm in size. This was included into the main fascial defect. We now had a 2 x 2 centimeter opening in the fascia. The tissues were fairly thin. The preperitoneal space was then dissected using blunt dissection and electrocautery. The 6.4 cm ventral ex mesh was placed beneath the fascia and sutured in place using trans-fascial 0 Ethibond sutures. The defect was closed using interrupted vest over pants 0 Ethibond mattress sutures. The folding edge was sutured down using 0 Ethibond sutures as well. The subcutaneous tissues were reapproximated using inverted 2-0 & 3-0 Vicryl sutures. The umbilicus was tacked back down to the fascia using a 2-0 Vicryl suture. The skin was closed using 4-0 Monocryl sutures. Skin glue and sterile dressings were then applied. HERNIA CHARACTERISTICS: Length: 2 cm Width: 2 cm Type: Umbilical/incisional TYPE OF MESH USED: 6.4 cm ventral ex LOCATION OF MESH: Sublay FIXATION: Trans-fascial 0 Ethibond sutures DISPOSITION: Stable to recovery room
[2020-12-14] MEDS ORDERED: HEPARIN SODIUM,PORCINE/PF 5,000 UNIT/0.5 ML SYRINGE SQ SCH (16:00)
[2020-12-14 17:53] VITALS: TEMP 98.1
[2020-12-14 17:59] VITALS: BP 136/76; PULSE 70
[2020-12-14] MEDS ORDERED: KETOROLAC 15 MG/ML 1 ML VIAL IVP SCH (18:00)
[2020-12-14] MEDS ORDERED: FAMOTIDINE 20 MG TAB PO SCH (21:00)
== END 2020-12-14 18:15 | disposition home or self-care (01) ==
LOC: EC 16:43 → 4SSUR 20:11 → INTOOBSV 20:11 → 4SSUR 20:30 → UNDODISIN 12-14 18:15
PROVIDERS: ADMIT Surgery; ATTEND Surgery
DX: K42.0 Umbilical hernia with obstruction, without gangrene (principal); K43.2 Incisional hernia without obstruction or gangrene; E78.5 Hyperlipidemia, unspecified; E66.9 Obesity, unspecified; Z68.41 Body mass index [BMI] 40.0-44.9, adult; R16.0 Hepatomegaly, not elsewhere classified; K76.0 Fatty (change of) liver, not elsewhere classified; I10 Essential (primary) hypertension; I25.2 Old myocardial infarction; G47.33 Obstructive sleep apnea (adult) (pediatric); Z20.822 Contact with and (suspected) exposure to COVID-19; Z79.899 Other long term (current) drug therapy; Z83.3 Family history of diabetes mellitus; Z83.49 Family history of other endocrine, nutritional and metabolic diseases
CPT/HCPCS: 99285; 36415; 80053; 82150; 83605; 83690; 85025; 88302; 87635; 76705; 74150; 49587; 49561; 49568; G0378 ×2; C1781; J2543 ×2; J2250; J0330; J1644 ×2; J1100; J2710; J2405 ×2; J2001; J3010; J1885; J2704; J1170; 96361; 96374

== ENCOUNTER → 2020-12-13 | Outpatient (CLI) | payer BC ==
--- NOTE | 2020-12-13 13:42 | US ---
EXAMINATION TYPE: US abdomen limited DATE OF EXAM: 12/13/2020 COMPARISON: NONE CLINICAL HISTORY: 50-year-old male K42.9 Umbilical hernia without obstruction or gangrene. The patien t hit his stomach at area of umbilicus yesterday and felt pain, tender today, redness within umbilicu s, no discharge. Assess for hernia at location of: paraumbilical region FINDINGS: PEDIATRIC PHYSICAL THERAPY ASSISTANT NOTES: Just below the umbilicus, there is a 2.2 x 1.8 x 2.1cm focal protuberance of echog enic tissue centered within the subcutaneous adipose layer deep to the skin surface. Trace surroundin g and interspersed fluid is present. Some associated surrounding vascularity. Some possible contiguou s fluid extending superiorly from near towards the umbilicus. IMPRESSION: Differential considerations include omental fat-containing inferior periumbilical hernia measuring 2. 2 cm versus complex fluid relating to infection. The former is somewhat favored. Given some intersper sed fluid, associated inflammation from a fatty hernia incarceration or strangulation is not excluded at this time.
--- NOTE | 2020-12-13 15:43 | CT ---
EXAMINATION TYPE: CT abdomen wo con DATE OF EXAM: 12/13/2020 COMPARISON: Ultrasound same day HISTORY: 50-year-old male K42.9 umbilical pain TECHNIQUE: Contiguous axial scanning of the abdomen without IV contrast. Coronal and sagittal reconst ructions performed. CT DLP: 1039.6 mGycm Automated exposure control for dose reduction was used. FINDINGS: Heart normal size without pericardial effusion. Lung bases clear without pleural effusion. Liver mildly enlarged at 18.3 cm with low-attenuation suggesting fatty infiltration. Gallbladder, adrenal glands, right kidney, spleen, and pancreas show no gross unremarkable by noncont rast CT. Extra renal pelvis on the left kidney. No dilated small bowel, free fluid, or free air. No mesenteric or retroperitoneal lymphadenopathy. There is a small fatty umbilical hernia measuring 2.8 cm AP by 1.8 cm craniocaudal by 1.4 cm wide. Th is extends across a narrow 7 mm neck. There is moderate inflammatory fat stranding within the hernia sac and soft tissue thickening in the periumbilical region and also extending into the anterior intra -abdominal fat just deep to the hernia. No abnormal fluid collection is identified. Bones: Hypertrophic facet arthropathy mid to lower lumbar spine. [facility] within the lower thoracic spine . Pelvis not imaged. IMPRESSION: 1. SMALL BUT INFLAMED FATTY UMBILICAL HERNIA MEASURING 2.8 CM. Inflammation could be secondary to ass ociated infection/cellulitis versus incarceration and strangulation. No abscess. Consider surgical ev aluation. 2. Mild hepatomegaly (18.3 cm) with mild hepatic steatosis.
== END | disposition home or self-care (01) ==
LOC: RADUSWWP 13:05
PROVIDERS: ATTEND Family Medicine
DX: K42.9 Umbilical hernia without obstruction or gangrene (principal); K76.0 Fatty (change of) liver, not elsewhere classified; R16.0 Hepatomegaly, not elsewhere classified
CPT/HCPCS: 74150; 76705

== ENCOUNTER → 2022-01-15 | Outpatient (CLI) | payer OTHER ==
--- NOTE | 2022-01-15 09:51 | CT ---
EXAMINATION TYPE: CT right knee - [facility] Protocol CT DLP: 957 mGycm, Automated exposure control for dose reduction was used. DATE OF EXAM: 01/15/2022 9:39 AM COMPARISON: None CLINICAL INDICATION:Male, 51 years old with history of M25.561 R knee pain, Rt knee pain, pre op plan beatriz TECHNIQUE: Axial images were obtained of the right knee Fuad protocol . Additional coronal and sagit brandee reformatted images and soft tissue and bone window were obtained for review. 3-D reconstruction w as created on a separate workstation. Contrast used: None Oral contrast used: None FINDINGS: Visualized portions of the abdomen are grossly unremarkable. Bilateral fat-containing ingui nal hernia changes. The visualized portions of the hip in straight mild osteophyte formation on the a cetabulum. The right knee demonstrates osteophytes along the tibial plateau margin as well as the pat ester. There is a small right knee joint effusion. The ankle demonstrates mild degeneration changes at the tibiotalar joint. No evidence of fracture or dislocation visualized in the right lower chimney. IMPRESSION: 1. Fuad protocol right knee, presurgical planning. 2. Right knee degeneration changes with small joint effusion.
== END | disposition home or self-care (01) ==
LOC: RADCTMAIN 08:54
PROVIDERS: ATTEND Orthopaedic Surgery
DX: Z01.818 Encounter for other preprocedural examination (principal); M17.11 Unilateral primary osteoarthritis, right knee; M25.461 Effusion, right knee

== ENCOUNTER → 2022-02-05 | Outpatient (CLI) | payer OTHER ==
[2022-02-05 09:43] LABS: INR 0.9 (<1.2); Prothrombin Time 9.7 sec (9.0-12.0)
[2022-02-05 10:45] LABS: Appearance,Urine Clear (Clear); Bilirubin,Urine Negative (Negative); Blood,Urine Negative (Negative); Color,Urine Yellow; Glucose,Urine (UA) Negative (Negative); Hyaline Casts,Urine 1 /lpf (0-2); Ketones,Urine Negative (Negative); Leukocyte Esterase,Urine Negative (Negative); Mucus,Urine Few /hpf; Nitrite,Urine Negative (Negative); PH, Urine 6.5 (5.0-8.0); Protein,Urine 1+ (Negative); RBC,Urine 1 /hpf (0-5); Specific Gravity,Urine 1.026 (1.001-1.035); Squamous Epithelial Cell,Urine 1 /hpf (0-4); WBC,Urine 3 /hpf (0-5)
[2022-02-05 14:27] LABS: HCT 48.5 % (39.6-50.0); HGB 15.9 g/dL (13.0-17.0); MCH 29.5 pg (27.0-32.0); MCHC 32.8 g/dL (32.0-37.0); Mean Platelet Volume 10.9 fL (9.5-12.2); NRBC Per 100 WBC 0 /100 WBCS (0.0-0.0); Platelet Count 282 X 10*3/uL (140-440); RBC 5.39 X 10*6/uL (4.40-5.60); RDW 12.8 % (11.5-14.5); WBC 9.01 X 10*3/uL (4.50-10.00)
[2022-02-06 01:20] LABS: Albumin 4.8 g/dL (3.8-4.9); Albumin/Globulin Ratio 1.94 (1.60-3.17); Anion Gap 13.6 mmol/L (10.00-18.00); BUN/Creat Ratio 12.76 Ratio (12.00-20.00); Blood Urea Nitrogen 10.6 mg/dL (9.0-27.0); Calcium 9.9 mg/dL (8.7-10.3); Carbon Dioxide 31.2 mmol/L (20.0-27.5); Globulin 2.5 g/dL (1.6-3.3); Non-African American GFR(CKD) 101.8 (60.0-200.0); Potassium 4.5 mmol/L (3.5-5.5); Total Bilirubin 0.6 mg/dL (0.30-1.20); Total Protein 7.3 g/dL (6.2-8.2)
== END | disposition home or self-care (01) ==
LOC: LABPAT 08:35
PROVIDERS: ATTEND Orthopaedic Surgery
DX: Z01.812 Encounter for preprocedural laboratory examination (principal); M17.11 Unilateral primary osteoarthritis, right knee
CPT/HCPCS: 80053; 81001; 85027; 85610; 85730; 87070; 93005

== ENCOUNTER 2022-02-28 08:39 | Day surgery (SDC) | payer BC, OTHER ==
[2022-02-25 11:56] VITALS: BMI 43.3
[~2022-02-28 08:39] MED LIST: ACETAMINOPHEN TAB 500 MG TAB PO PRN; DEXAMETHASONE SOD PHOSPHATE 10 MG/ML 1 ML VIAL IV PRN; DOCUSATE 100 MG CAP PO PRN; FAMOTIDINE 20 MG/2 ML VIAL IVP PRN; KETOROLAC 15 MG/ML 1 ML VIAL IVP PRN; ONDANSETRON 4 MG/2 ML VIAL IVP PRN; ROPIVACAINE 246.25 MG, EPINEPHrine 0.5 MG, KETOROLAC (30 mg/mL) 30 MG, cloNIDine HCL/PF... MISCELLANE PRN; TRANEXAMIC ACID IN NACL,ISO-OS 1,000 MG in SALINE 1 100ML.BAG IVPB PRN; oxyCODONE ER 10 MG TAB.ER.12H PO PRN
[2022-02-28] MEDS ORDERED: ONDANSETRON 4 MG/2 ML VIAL IVP ONE (09:04)
[2022-02-28] MEDS ORDERED: LACTATED RINGERS 1,000 ML IV SCH (09:04)
[2022-02-28] MEDS ORDERED: MIDAZOLAM 2 MG/2 ML VIAL IV PRN (09:04)
[2022-02-28] MEDS ORDERED: LIDOCAINE 1% (10MG/ML) FOR IV START INTRADERMA PRN (09:04)
[2022-02-28] MEDS ORDERED: HYDROmorphone 0.5 MG/0.5 ML SYRINGE IVP PRN (09:04)
[2022-02-28] MEDS ORDERED: DEXAMETHASONE SOD PHOSPHATE 4 MG/ML 1 ML VIAL IV ONE (09:04)
[2022-02-28 09:56] LABS: Glucose,Whole Blood 139 mg/dL (70-110)
[2022-02-28] MEDS ORDERED: MIDAZOLAM 2 MG/2 ML VIAL IVP ONE (10:05)
[2022-02-28] MEDS ORDERED: LIDOCAINE 2% INJ 20 MG/ML (2 ML VIAL) ONE (10:19)
[2022-02-28] MEDS ORDERED: fentaNYL (PF) 50 MCG/ML 2 ML AMP ONE (10:19)
[2022-02-28] MEDS ORDERED: DEXAMETHASONE SOD PHOSPHATE 4 MG/ML 1 ML VIAL ONE (10:19)
[2022-02-28] MEDS ORDERED: ROPIVACAINE 5 MG/ML 30 ML VIAL ONE (10:19)
[2022-02-28] MEDS ORDERED: ROCURONIUM 10 MG/ML (5 ML VIAL) IV ONE (10:19)
[2022-02-28] MEDS ORDERED: TRANEXAMIC ACID IN NACL,ISO-OS 1,000 MG/100 ML BAG ONE (10:19)
[2022-02-28] MEDS ORDERED: SUCCINYLCHOLINE CHLORIDE 200 MG/10 ML VIAL IV ONE (10:19)
[2022-02-28] MEDS ORDERED: NEOSTIGMINE 1 MG/ML 10 ML VIAL ONE (10:19)
[2022-02-28] MEDS ORDERED: GLYCOPYRROLATE 0.2 MG/ML 2 ML VIAL ONE (10:19)
[2022-02-28] MEDS ORDERED: PROPOFOL 10 MG/ML 20 ML VIAL IV ONE (10:19)
[2022-02-28] MEDS ORDERED: VANCOMYCIN 1,000 MG VIAL MISCELLANE ONE (11:55)
[2022-02-28] MEDS ORDERED: NALOXONE 0.4 MG/ML 1 ML VIAL IV PRN (12:46)
[2022-02-28 12:47] VITALS: TEMP 97.8
--- NOTE | 2022-02-28 12:51 | P.OP ---
Date of Procedure: 02/28/22 Preoperative Diagnosis: 1. Severe right knee osteoarthritis 2. BMI 45 3. Coronary artery disease 4. Diabetes (HgbA1c 6.) Postoperative Diagnosis: Same Procedure(s) Performed: Right total knee replacement Implants: 1. [place] [employer] CR Femur Size #3 2. [place] [employer] [place] Tibial Base Size #4 3. Jenni Triathlon CS poly Size #4, 9-mm 4. [place] [employer] all poly patella, Size #35 Anesthesia: PETR, prerna Surgeon: Pierce Palacio Millinery Salesperson #1: Real Morillo Estimated Blood Loss (ml): 100 IV fluids (ml): 1,200 Pathology: none sent Condition: stable Disposition: PACU Indications for Procedure: The patient is very pleasant 51-year-old male with multiple medical problems including having a BMI of 45, type 2 diabetes, and coronary artery disease who presented to my office with severe knee pain and x-rays that showed medial compartment arthritis. He failed a long course of nonsurgical treatment and requested proceeding with arthroplasty. Based on the diffuse nature of his pain, BMI, and medical comorbidities I recommended a total knee replacement as opposed to a unicompartmental replacement. The patient understood the rationale for this and agreed. I met with the patient preoperatively in the office setting and discussed treatment of their symptomatic knee arthritis. They failed a long course of nonsurgical treatment and elected to proceed with an elective total knee replacement. I discussed the potential risks and complications at length and gave them ample time to ask questions. Risks discussed included: risks from anesthesia, superficial site surgical infection, acute and/or chronic periprosthetic joint infection, delayed wound healing, drainage, wound necrosis, instability, stiffness, stiffness requiring manipulation and/or revision surgery, damage to local blood vessels or nerves, aseptic loosening of the implants, extensor mechanism issues including disruption, patellar maltracking, avascular necrosis etc., continued or worsened knee pain, generalized dissatisfaction with surgical outcome, need for revision surgery, an inability to regain preinjury level of function, DVT, PE, other medical complications, and possibly loss of life or limb. The patient voiced their understanding that while these are the most common complications other less common complications are possible. They provided both their verbal and written consent to go forward with surgery. Operative Findings: Severe full-thickness cartilage loss in the medial and patellofemoral compartments Description of Procedure: The patient was identified in preoperative holding and the correct operative extremity was verified and marked with a marker. I reviewed the consent form with the patient at length. All of their questions were answered. The patient was given a block by anesthesia. They were then brought back to the operating room. They were transferred onto the operating room table where a general anesthetic, preoperative antibiotics, and tranexamic acid were administered by anesthesia. A tourniquet was applied to the proximal aspect of the operative extremity. The contralateral extremity was padded under the heel and secured to the operating room table with a nonsterile blue towel and tape. The ipsilateral arm was carefully draped across the patient's chest and secured with a pillow and foam. A post was applied over the lateral aspect of the ipsilateral thigh and a bolster was placed under the ipsilateral foot. I verified that the operative extremity was stable and the knee was flexed to 90. The operative extremity was then placed in a leg mackenzie, nonsterile drapes were applied, and the extremity was prepped and draped sterilely in the standard sterile fashion. Prior to starting surgery timeout was performed identifying the correct patient, operative extremity, and procedure. The leg was then elevated, exsanguinated with an Esmarch bandage, and the tourniquet was inflated. An anterior midline incision was made sharply with a scalpel. Once I had dissected deep to the superficial fascial layer medial and lateral flaps were elevated. A medial parapatellar arthrotomy was created. Upon opening the knee joint there were diffuse arthritic changes in all 3 compartments. The anterior horn of the medial meniscus were sharply released and a medial release was performed around the posterior medial corner of the knee to facilitate retractor placement. The fat pad was excised with electrocautery. The patella was found to be severely arthritic and a provisional cut was made with a sagittal saw to facilitate mobilization of the extensor mechanism during the procedure. Remnants of the ACL and PCL were then excised from the notch. 4 mm pins were then placed within the incision in the medial distal femur and proximal tibia. Arrays were applied to the pins and I verified they were completely tightened. The knee was then registered with the Selatra robot and manipulations in implant position were made to balance the knee and opitmize implant position. Using the Selatra robotic saw all cuts were made in accordance with our plan. After all bony fragments had been removed the cuts were verified with the planar probe. The tibia was then subluxed forward and sized. The knee was brought into flexion and a lamina regulatory intern was placed to allow removal of the meniscal remnants both medially and laterally as well as posterior osteophytes. Local anesthetic was then infiltrated around the joint capsule. Trial implants were then placed within the knee. Range of motion and collateral ligament tension was then evaluated. Adjustments in implant size and position were then made accordingly. Once the knee was felt to be appropriately balanced the Fuad pins were removed. The patella was then recut, sized, and punched. A trial patellar button was then placed. With the trial components in place, the patella tracked midline. The femur was then drilled and the trial component removed. The trial tibial component was then appropriately rotated, pinned, and prepared for the keel. All trial components were then removed from the knee. The knee was thoroughly irrigated with pulsatile lavage. Cement was prepared via vacuum mixing in a bowl on the back table. I then hand pressurized cement into the femur and tibia and placed the implants beginning with the tibial base tray and poly liner, femoral component, and finally the patellar button. All extruded cement was removed including from the pin sites. Once the cement had hardened the knee was evaluated one final time with the final polyethylene liner in place. The knee had full extension and flexion and felt stable to varus and valgus stress throughout the arc of motion. The tourniquet was released and with the tourniquet down the patella tracked midline. All bleeders were controlled with electrocautery. The knee was then soaked for 3 minutes with a dilute Betadine soak. The knee was thoroughly irrigated using 3 L of sterile saline and pulsatile lavage. The extensor mechanism was then reapproximated using pop off Vicryl sutures followed by a running barbed suture. The knee was then closed in layers with a 0 strata fix for the deep fascial layer, 2-0 strata fix for the superficial subcutaneous layer and Monocryl and Steri-Strips for the skin. A sterile dressing was applied. I verified that all instrument, sponge, and sharp counts were correct. The patient was then transferred off the operating room table, extubated, and brought to recovery having tolerated the procedure well. Real Morillo PA-C was required as a skilled printing bindery assistant due to the complexity of the procedure for patient positioning, draping, retraction, placement of hardware, and closure of wound. PLAN: The patient can weight-bear as tolerated on the operative extremity. DVT prophylaxis with aspirin 81 mg twice a day based on preoperative risk stratification. The patient is going to attempt to leave as an outpatient. They can be discharged as long as they passed physical therapy and her pain is controlled. Follow-up in the office in 2 weeks for wound check and x-rays of the knee including an AP and lateral.
--- NOTE | 2022-02-28 13:32 | XR ---
EXAMINATION TYPE: XR knee limited RT DATE OF EXAM: 02/28/2022 1:26 PM INDICATION: Patient age:Male; 51 years old; Reason for study: post op; [facility]. COMPARISON: CT right knee 01/15/2022 TECHNIQUE: The Right knee(s) was examined in AP and lateral projections. FINDINGS: Postsurgical changes from right knee arthroplasty with distal femoral and proximal tibial components. Hardware appears intact with appropriate alignment. There is associated subcutaneous rohini ma and soft tissue gas. No acute fracture or dislocation. IMPRESSION: Postsurgical changes from right knee arthroplasty. Hardware appears intact with appropriate alignment .
[2022-02-28 13:51] VITALS: RESP 16
[2022-02-28] MEDS ORDERED: LACTATED RINGERS 1,000 ML IV ONE (13:51)
[2022-02-28] MEDS ORDERED: HYDROcodone/APAP 5-325MG 1 EACH TAB PO ONE (14:08)
[2022-02-28] MEDS ORDERED: HYDROcodone/APAP 5-325MG 1 EACH TAB ONE (14:09)
[2022-02-28] MEDS ORDERED: ceFAZolin 3 GM in SODIUM CHLORIDE 0.9% 100 ML IVPB ONE (14:20)
[2022-02-28 15:24] VITALS: BP 131/79; PULSE 102
--- NOTE | 2022-03-02 14:19 | P.ANPRN ---
Procedure Note - Anesthesia - Nerve Block Performed Right Adductor Canal Single Time Out Performed: Yes Date of Procedure: 02/28/22 Procedure Start Time: :04 Procedure Stop Time: :06 Location of Patient: PreOp Indication: Acute Post-Operative Pain, Requested by Surgeon Sedation Type: Sedate with meaningful contact maintained Preparation: Sterile Prep Position: Supine Needle Types: Pajunk Needle Gauge: 21 Ultrasound used to visualize needle placement: Yes Ultrasound used to observe medication spread: Yes Blood Aspirated: No Pain Paresthesia on Injection Noted: No Resistance on Injection: Normal Image Stored and Saved: Yes Events: Uneventful and Well Tolerated (Ropivacaine 0.5% 20 mL plus dexamethasone 4 mg)
--- NOTE | 2022-03-02 14:20 | P.ANPRN ---
Procedure Note - Anesthesia - Nerve Block Performed Right [place] Single Time Out Performed: Yes Date of Procedure: 02/28/22 Procedure Start Time: 10:07 Procedure Stop Time: :08 Location of Patient: PreOp Indication: Acute Post-Operative Pain, Requested by Surgeon Sedation Type: Sedate with meaningful contact maintained Preparation: Sterile Prep Position: Supine Needle Types: Pajunk Ultrasound used to visualize needle placement: Yes Ultrasound used to observe medication spread: Yes Blood Aspirated: No Pain Paresthesia on Injection Noted: No Resistance on Injection: Normal Image Stored and Saved: Yes Events: Uneventful and Well Tolerated (Ropivacaine 0.5% 25 mL plus dexamethasone 4 mg)
== END 2022-02-28 15:49 | disposition home health service (06) ==
LOC: OR 08:39
PROVIDERS: ATTEND Orthopaedic Surgery
DX: M17.11 Unilateral primary osteoarthritis, right knee (principal); G89.18 Other acute postprocedural pain; I25.10 Atherosclerotic heart disease of native coronary artery without angina pectoris; E11.9 Type 2 diabetes mellitus without complications; I10 Essential (primary) hypertension; E78.5 Hyperlipidemia, unspecified; G47.33 Obstructive sleep apnea (adult) (pediatric); I25.2 Old myocardial infarction; Z79.899 Other long term (current) drug therapy; Z79.84 Long term (current) use of oral hypoglycemic drugs; Z98.890 Other specified postprocedural states; Z68.42 Body mass index [BMI] 45.0-49.9, adult
CPT/HCPCS: 97530; 97161; 73560; 27447; 64999; 64447; J2250; J0171; J3370; J1100; J0690; J2405; J1885 ×2; J2795; J0735; J1170; 64448; 76942